=== PATIENT | male | born 1985 | race Caucasian/White ===

== ENCOUNTER 2022-01-11 17:20 | Emergency (ER) | payer OTHER ==
[2022-01-11 17:27] VITALS: BP 139/90; PULSE 81; TEMP 98.6; BMI 30.6
[2022-01-11] MEDS ORDERED: KETOROLAC TROMETHAMINE 30 MG/1 ML VIAL IM ONE (18:26)
== END 2022-01-11 19:35 | disposition home or self-care (01) ==
LOC: JERFT 17:20
PROC: 3E023GC Introduction of Other Therapeutic Substance into Muscle, Percutaneous Approach (ICD-10-PCS; principal; 2022-01-11)
DX: M54.2 Cervicalgia (principal)
CPT/HCPCS: 72040-TC; 99283-25

== ENCOUNTER 2023-07-14 09:21 | Emergency (ER) | payer OTHER ==
[2023-07-14 09:28] VITALS: BP 128/82; PULSE 92; RESP 18; TEMP 98.4; BMI 29.9
[2023-07-14] MEDS ORDERED: CYCLOBENZAPRINE HCL 10 MG TABLET (FP) PO ONE (09:29)
[2023-07-14] MEDS ORDERED: ACETAMINOPHEN 500 MG TABLET (FP) PO ONE (09:29)
[2023-07-14] MEDS ORDERED: predniSONE 20 MG TABLET (UD) PO ONE (09:30)
[2023-07-14] MEDS ORDERED: CYCLOBENZAPRINE HCL 10 MG TABLET (FP) ONE (09:39)
[2023-07-14] MEDS ORDERED: predniSONE 20 MG TABLET (UD) ONE (09:40)
[2023-07-14] MEDS ORDERED: ACETAMINOPHEN 500 MG TABLET (FP) ONE (09:40)
== END 2023-07-14 10:18 | disposition home or self-care (01) ==
LOC: JERFT 09:21
DX: M54.42 Lumbago with sciatica, left side (principal)
CPT/HCPCS: 99283-25